=== PATIENT | female | born 1960 | race Caucasian/White ===

== ENCOUNTER 2018-10-18 21:00 | Emergency (ER) | payer OTHER, MEDICAID ==
[~2018-10-18] VITALS: Ht 165.1 cm; Wt 83.9 kg
[~2018-10-18 21:00] MED LIST: ALPR1TAB2; CARI-277; OXYCONTIN; TEMA30CA5
[2018-10-18 21:22] VITALS: BP 155/82
[2018-10-18] MEDS ORDERED: MORPHINE SULFATE 4 MG/ML SYR/VIAL IM ONE (22:30)
[2018-10-18] MEDS ORDERED: ONDANSETRON HCL 4 MG/2 ML VIAL IM ONE (22:30)
== END 2018-10-18 23:42 | disposition home or self-care (01) ==
LOC: EDBD 21:00 → ER 21:08
DX: S82.044A Nondisplaced comminuted fracture of right patella, initial encounter for closed fracture (principal); Z79.899 Other long term (current) drug therapy; Z89.511 Acquired absence of right leg below knee; W18.39XA Other fall on same level, initial encounter; Y93.89 Activity, other specified; Y99.8 Other external cause status; Y92.89 Other specified places as the place of occurrence of the external cause
CPT/HCPCS: 29505; 73560; 96372; 99283; J2270; J2405